=== PATIENT | female | born 1930 | race Caucasian/White ===

== ENCOUNTER 2017-07-13 22:00 | Observation (INO) | payer MEDICARE, OTHER ==
[2017-07-14 00:56] VITALS: RESP 16
[2017-07-14] MEDS ORDERED: DEXTROSE 5%-0.45% NACL 1,000 ML IV SCH (02:00)
[2017-07-14 03:14] VITALS: BMI 19.1
[2017-07-14 07:48] LABS: Basophils % (A) 0 %; Eosinophils % (A) 0 %; HCT 37.9 % (34.0-46.0); HGB 11.2 gm/dL (11.4-16.0); Hypochromasia Marked; Lymphocytes # (A) 1.2 k/uL (1.0-4.8); Lymphocytes % (A) 10 %; MCH 30.1 pg (25.0-35.0); MCHC 29.6 g/dL (31.0-37.0); MCV 101.7 fL (80.0-100.0); Macrocytosis Slight; Mean Platelet Volume 8.5; Monocytes # (A) 0.7 k/uL (0-1.0); Monocytes % (A) 6 %; Neutrophils # (A) 9.3 k/uL (1.3-7.7); Neutrophils % (A) 82 %; Platelet Count 391 k/uL (150-450); RBC 3.73 m/uL (3.80-5.40); RDW 15.3 % (11.5-15.5); WBC 11.3 k/uL (3.8-10.6)
[2017-07-14 08:08] VITALS: BP 92/51; PULSE 67; TEMP 97.6
[2017-07-14 08:11] LABS: Calcium 9.3 mg/dL (8.4-10.2)
--- NOTE | 2017-07-14 23:58 | DS ---
DISCHARGE SUMMARY Patient is a pleasant 86-year-old female admitted secondary to dehydration. I am unable to get much of a history from the patient. The patient is found to be severely hypernatremic with the sodium going up to around 160. The patient has advanced dementia. I had extensive discussion with the family and patient. Dementia is end- stage and her prognosis is extremely poor between 2 weeks to 2 months and her Karnofsky score is extremely low. Because of which, after extensive discussion with the family, the patient was made hospice and patient will be discharged to the facility back with hospice and all her home medications were discontinued except for comfort pack and morphine for pain and no further readmissions. This is both H and P and discharge summary will be dictated later and this is stat H and P and discharge summary temporally for this patient now. [id number] / YESSENIAN: [id number] /
--- NOTE | 2017-07-15 11:07 | P.HPIM ---
History of Present Illness Patient is a 86-year-old female admitted for severe dehydration ration is severely hyponatremic patient is unable to provide any area of the history for me. Most of the history was obtain from the daughter patient lives at long- term nursing facility her dementia unit patient has advanced dementia and end- stage dementia. Prognosis is extremely poor about the 2 weeks to a month or 2 her Karnofsky score is almost 0. Patient has extremely poor quality of life after extensive discussion with the daughter and with family members patient was made patient is more appropriate for comfort care and hospice. Patient was started on D5 half-normal saline was treated for dehydration. PEG tube placement is not appropriate for the patient patient is unable to provide any of the history but arousable with painful to light , unsure of the exact etiology of her advanced dementia may be senile or vascular Review of Systems Unable to obtain due to her clinical condition Past Medical History Past Medical History: Coronary Artery Disease (CAD), Dementia, Hyperlipidemia, Hypertension, Memory Impairment, Osteoarthritis (OA) Additional Past Medical History / Comment(s): Severe Dementia, mood changes, anxiety, restlessness and agitation History of Any Multi-Drug Resistant Organisms: None Reported Past Surgical History: Unable to Obtain Additional Past Surgical History / Comment(s): unable to obtain. no information on [employer] paperwork. patient nonverbal to discuss. Past Anesthesia/Blood Transfusion Reactions: No Reported Reaction Past Psychological History: Anxiety Smoking Status: Unknown if ever smoked - Past Family History Mother History Unknown: Yes Father History Unknown: Yes Family Medical History: Unable to Obtain Medications and Allergies Home Medications Medication Instructions Recorded Confirmed Type 2kcal Supplement 120 ml PO DAILY@1100 07/14/17 07/14/17 History Acetaminophen Tab [Tylenol Tab] 500 mg PO Q6H PRN 07/14/17 07/14/17 History Acetaminophen [Tylenol Extra 500 mg PO Q6HR PRN 07/14/17 07/14/17 History Strength] Aspirin 81 mg PO DAILY@1100 07/14/17 07/14/17 History Atorvastatin [Lipitor] 40 mg PO DAILY@1100 07/14/17 07/14/17 History Bisacodyl 10 mg RECTAL DAILY PRN 07/14/17 07/14/17 History LORazepam [Ativan] 0.5 mg PO TID 07/14/17 07/14/17 History Magnesium Hydroxide [Milk of 2,400 mg PO Q48H 07/14/17 07/14/17 History Magnesia] Magnesium Hydroxide [Milk of 2,400 ml PO DAILY PRN 07/14/17 07/14/17 History Magnesia] Metoprolol Succinate (ER) [Toprol 25 mg PO DAILY@1100 07/14/17 07/14/17 History Xl] Sennosides-Docusate Sodium 1 tab PO BID 07/14/17 07/14/17 History [Senokot-S] Sertraline HCl [Zoloft] 100 mg PO DAILY@1100 07/14/17 07/14/17 History Valproic Acid (As Sodium Salt) 250 mg PO BID@1100,1800 07/14/17 07/14/17 History [Depakene Syrup] Allergies Allergy/AdvReac Type Severity Reaction Status Date / Time sulfamethoxazole Allergy Unknown Unknown Verified 07/14/17 01:38 Physical Exam PHYSICAL EXAMINATION: GENERAL: Patient is moderate nourished, hard to wake up arousable, thin built HEENT: Pupils are round and equally reacting to light. EOMI. No scleral icterus. No conjunctival pallor. Normocephalic, atraumatic. No pharyngeal erythema. No thyromegaly. CARDIOVASCULAR: S1 and S2 present. No murmurs, rubs, or gallops. PULMONARY: Chest is clear to auscultation, no wheezing or crackles. ABDOMEN: Soft, nontender, nondistended, normoactive bowel sounds. No palpable organomegaly. MUSCULOSKELETAL: No joint swelling or deformity. EXTREMITIES: No cyanosis, clubbing, or pedal edema. NEUROLOGICAL: Unable to assess SKIN: No rashes. Results CBC & Chem 7: 07/14/17 07:18 07/14/17 07:18 Thrombosis Risk Factor Assmnt - Choose All That Apply Each Risk Factor Represents 3 Points: Age 75 years or older Thrombosis Risk Factor Assessment Total Risk Factor Score: 3 Thrombosis Risk Factor Assessment Level: Moderate Risk Assessment and Plan Plan: #1 severe dehydration: Patient is on D5 half normal saline. #2 severe hyponatremia hypovolemic hyponatremia #3 advanced dementia patient will be made hospice had extensive discussion with the family today. #4 acute renal failure: Pale ischemia due to peripheral intake #5 hypotension #6 coronary artery disease #7 hypertension #8 hyperlipidemia
== END 2017-07-14 17:30 | disposition home or self-care (01) ==
LOC: 5MS5E 07-14 00:44
PROVIDERS: ADMIT Internal Medicine; ATTEND Internal Medicine
DX: E86.0 Dehydration (principal); E87.1 Hypo-osmolality and hyponatremia; E87.0 Hyperosmolality and hypernatremia; F03.90 Unspecified dementia, unspecified severity, without behavioral disturbance, psychotic disturbance, mood disturbance, and anxiety; N17.9 Acute kidney failure, unspecified; I25.10 Atherosclerotic heart disease of native coronary artery without angina pectoris; E78.5 Hyperlipidemia, unspecified; I95.9 Hypotension, unspecified; I10 Essential (primary) hypertension; M19.90 Unspecified osteoarthritis, unspecified site; F41.9 Anxiety disorder, unspecified; R45.1 Restlessness and agitation; F39 Unspecified mood [affective] disorder; Z79.82 Long term (current) use of aspirin; Z79.899 Other long term (current) drug therapy; Z88.2 Allergy status to sulfonamides
CPT/HCPCS: 80048; 85025; G0378; G0379